=== PATIENT | female | born 1990 | race Caucasian/White ===

== ENCOUNTER 2017-04-02 09:23 | Inpatient (IN) ==
[2017-04-02] MEDS ORDERED: ONDANSETRON 4 MG/2 ML VIAL IV PRN (11:58)
[2017-04-02] MEDS ORDERED: LACTATED RINGERS 1,000 ML IV SCH (11:59)
[2017-04-02 12:19] LABS: Basophils % 0.2 % (0.0-0.8); Eosinophils # 0.1 10*3/uL (0.0-0.87); Eosinophils % 0.6 % (0.00-10.9); Hematocrit 37.2 VOL% (35.7-47.0); Hemoglobin 12.3 GM/DL (12.0-16.0); Immature Granulocytes % 0.9 %; Immature Granulocytes Absolute 0.13 #; Lymphocytes # 4.1 10*3/uL (1.4-4.0); Lymphocytes % 28.1 % (21.3-54.2); Mean Corpuscular HGB Conc 33.1 GM/DL (32-36); Mean Corpuscular Hemoglobin 30 PG (27-34); Mean Corpuscular Volume 91.9 FL (87-102); Mean Platelet Volume 10.5 FL (9.6-12.0); Monocytes # 0.8 10*3/uL (0.11-0.8); Monocytes % 5.4 % (1.7-12.7); Neutrophils # 9.4 10*3/uL (1.4-7.4); Neutrophils % 64.8 % (38.7-73.9); Platelet Count 331 T/CUMM (130-400); Red Blood Count 4.05 MC/CUMM (3.8-5.5); Red Cell Distribution Width 12.8 % (9.3-17.3); White Blood Count 14.5 T/CUMM (4-12)
[2017-04-02 12:27] LABS: INR 0.9; PT Patient Result 9.1 SECS; Partial Thromboplastin Time 25.2 SECS (0-40)
[2017-04-02] MEDS: LABETALOL 200 MG TABLET PO SCH ×2 (12:48→20:18)
[2017-04-02 13:00] LABS: Alanine Aminotransferase 21 U/L (13-56); Albumin 2.6 G/DL (3.4-5.0); Alkaline Phosphatase 124 U/L (45-117); Aspartate Amino Transferase 15 U/L (0-37); Bilirubin,Total < 0.39 MG/DL (0.2-1.0); Blood Urea Nitrogen 12 MG/DL (7-18); Calcium 9.1 MG/DL (8.5-10.1); Glucose 79 MG/DL (74-106); Potassium 4.1 MMOL/L (3.5-5.1); Sodium 136 MMOL/L (136-145); Total Protein 7.4 G/DL (6.4-8.3); Uric Acid 5.4 MG/DL (2.6-6.0)
[2017-04-02] MEDS ORDERED: ACETAMINOPHEN 500 MG TABLET PO PRN (16:09)
[2017-04-02] MEDS ORDERED: MEPERIDINE 25 MG/1 ML VIAL IV PRN (16:32)
[2017-04-02] MEDS ORDERED: ZALEPLON 5 MG CAPSULE PO ONE (22:00)
[2017-04-03] MEDS: LABETALOL 200 MG TABLET PO SCH ×3 (04:00→21:58)
[2017-04-03] MEDS ORDERED: LABETALOL 100 MG TABLET PO STA (20:00)
[2017-04-03] MEDS ORDERED: ZALEPLON 5 MG CAPSULE PO ONE (21:26)
[2017-04-04 07:05] LABS: Basophils % 0.2 % (0.0-0.8); Eosinophils # 0.1 10*3/uL (0.0-0.87); Eosinophils % 0.8 % (0.00-10.9); Hematocrit 35.4 VOL% (35.7-47.0); Hemoglobin 11.9 GM/DL (12.0-16.0); Immature Granulocytes % 0.6 %; Immature Granulocytes Absolute 0.07 #; Lymphocytes # 3.8 10*3/uL (1.4-4.0); Lymphocytes % 29.8 % (21.3-54.2); Mean Corpuscular HGB Conc 33.6 GM/DL (32-36); Mean Corpuscular Hemoglobin 31 PG (27-34); Mean Corpuscular Volume 91.2 FL (87-102); Mean Platelet Volume 10.4 FL (9.6-12.0); Monocytes # 0.6 10*3/uL (0.11-0.8); Monocytes % 5.1 % (1.7-12.7); Neutrophils % 63.5 % (38.7-73.9); Platelet Count 282 T/CUMM (130-400); Red Blood Count 3.88 MC/CUMM (3.8-5.5); Red Cell Distribution Width 13.1 % (9.3-17.3); White Blood Count 12.7 T/CUMM (4-12)
[2017-04-04 07:36] LABS: Alanine Aminotransferase 16 U/L (13-56); Albumin 2.6 G/DL (3.4-5.0); Alkaline Phosphatase 116 U/L (45-117); Aspartate Amino Transferase 12 U/L (0-37); Bilirubin,Total < 0.39 MG/DL (0.2-1.0); Blood Urea Nitrogen 14 MG/DL (7-18); Calcium 8.8 MG/DL (8.5-10.1); Glucose 77 MG/DL (74-106); Osmolality,Calculated 272.8 MOS/KG (273-304); Potassium 4.3 MMOL/L (3.5-5.1); Sodium 137 MMOL/L (136-145); Total Protein 6.3 G/DL (6.4-8.3)
[2017-04-04] MEDS ORDERED: CITRIC ACID/SODIUM CITRATE 30 ML UDCUP PO ONE (07:58)
[2017-04-04] MEDS ORDERED: ceFAZolin 2,000 MG in PREMIX 1 EACH IV ONE (07:58)
[2017-04-04] MEDS ORDERED: OXYTOCIN 10 UNIT/ML VIAL IM ONE (08:00)
[2017-04-04] MEDS ORDERED: OXYTOCIN/LR 30 UNIT/1,000 ML BAG IV ONE ×2 (08:00→13:37)
[2017-04-04] MEDS ORDERED: DEXTROSE 5% LACTATED RINGERS 1,000 ML IV SCH (08:00)
[2017-04-04] MEDS ORDERED: FAMOTIDINE 20 MG/2 ML VIAL IV ONE (08:02)
[2017-04-04] MEDS ORDERED: diphenhydrAMINE 50 MG/1 ML VIAL IV PRN ×2 (08:02→19:46)
[2017-04-04] MEDS ORDERED: LACTATED RINGERS 250 ML IV PRN (08:02)
[2017-04-04] MEDS ORDERED: hydrOXYzine HCL 25 MG/1 ML VIAL IM PRN (08:02)
[2017-04-04] MEDS ORDERED: PROMETHAZINE 25 MG/1 ML VIAL IM ONE (08:02)
[2017-04-04] MEDS: hydrALAZINE 20 MG/1 ML VIAL IV SCH ×2 (08:25→09:00)
[2017-04-04] MEDS ORDERED: LACTATED RINGERS 1,000 ML IV SCH ×2 (08:30→18:18)
[2017-04-04 08:33] LABS: INR 0.9; PT Patient Result 9.1 SECS; Partial Thromboplastin Time 26.1 SECS (0-40)
[2017-04-04] MEDS ORDERED: MAGNESIUM SULF RIDER 100 ML IV ONE (12:02)
[2017-04-04] MEDS ORDERED: MAGNESIUM SULF DRIP 40 GM/1,000 ML ML IV ONE (12:04)
[2017-04-04] MEDS ORDERED: hydrALAZINE 20 MG/1 ML VIAL ONE (12:04)
[2017-04-04] MEDS ORDERED: MAGNESIUM SULF DRIP 40 GM/1,000 ML ML IV SCH (12:30)
[2017-04-04] MEDS ORDERED: hydrALAZINE 20 MG/1 ML VIAL IV SCH (12:30)
[2017-04-04] MEDS ORDERED: LIDOCAINE 100 MG/5 ML SYRINGE ONE (13:25)
[2017-04-04] MEDS ORDERED: ONDANSETRON 4 MG/2 ML VIAL ONE (13:25)
[2017-04-04] MEDS ORDERED: FUROSEMIDE 20 MG/2 ML VIAL ONE ×2 (13:25)
[2017-04-04] MEDS ORDERED: PHENYLEPHRINE 1 MG/10 ML SYRINGE IV ONE (13:25)
[2017-04-04] MEDS ORDERED: MORPHINE 10 MG/10 ML VIAL ONE (14:43)
[2017-04-04] MEDS ORDERED: ACETAMINOPHEN 325 MG TABLET PO PRN (18:18)
[2017-04-04] MEDS ORDERED: ONDANSETRON 4 MG/2 ML VIAL IV PRN (18:18)
[2017-04-04] MEDS ORDERED: RHO(D) IMMUNE GLOBULIN 300 MCG SYRINGE IM ONE (18:18)
[2017-04-04] MEDS ORDERED: OXYTOCIN/LR 20 UNIT/1,000 ML BAG IV ONE (18:18)
[2017-04-04] MEDS ORDERED: diphenhydrAMINE 50 MG/1 ML VIAL ONE (19:42)
[2017-04-04] MEDS: FUROSEMIDE 40 MG/4 ML VIAL IV SCH (19:58)
[2017-04-04] MEDS: ceFAZolin 1,000 MG in SYRINGE 1 EACH IV SCH (22:41)
[2017-04-04 22:50] LABS: Basophils % 0.2 % (0.0-0.8); Eosinophils % 0.1 % (0.00-10.9); Hematocrit 34.5 VOL% (35.7-47.0); Hemoglobin 11.8 GM/DL (12.0-16.0); Immature Granulocytes % 0.6 %; Lymphocytes # 2.6 10*3/uL (1.4-4.0); Lymphocytes % 15.8 % (21.3-54.2); Mean Corpuscular HGB Conc 34.2 GM/DL (32-36); Mean Corpuscular Hemoglobin 31 PG (27-34); Mean Corpuscular Volume 89.6 FL (87-102); Mean Platelet Volume 10.5 FL (9.6-12.0); Monocytes # 1.2 10*3/uL (0.11-0.8); Monocytes % 7.1 % (1.7-12.7); Neutrophils # 12.7 10*3/uL (1.4-7.4); Neutrophils % 76.2 % (38.7-73.9); Platelet Count 296 T/CUMM (130-400); Red Blood Count 3.85 MC/CUMM (3.8-5.5); Red Cell Distribution Width 13.3 % (9.3-17.3); White Blood Count 16.7 T/CUMM (4-12)
[2017-04-05] MEDS: DOCUSATE SODIUM 100 MG CAPSULE PO SCH ×3 (00:07→21:05)
[2017-04-05] MEDS: FUROSEMIDE 40 MG/4 ML VIAL IV SCH (02:20)
[2017-04-05 05:41] LABS: Basophils % 0.1 % (0.0-0.8); Eosinophils % 0.3 % (0.00-10.9); Hematocrit 33.9 VOL% (35.7-47.0); Hemoglobin 11.5 GM/DL (12.0-16.0); Immature Granulocytes % 0.6 %; Immature Granulocytes Absolute 0.09 #; Lymphocytes # 3.1 10*3/uL (1.4-4.0); Lymphocytes % 20.6 % (21.3-54.2); Mean Corpuscular HGB Conc 33.9 GM/DL (32-36); Mean Corpuscular Hemoglobin 31 PG (27-34); Mean Corpuscular Volume 91.4 FL (87-102); Mean Platelet Volume 10.4 FL (9.6-12.0); Monocytes # 0.9 10*3/uL (0.11-0.8); Monocytes % 5.7 % (1.7-12.7); Neutrophils # 10.9 10*3/uL (1.4-7.4); Neutrophils % 72.7 % (38.7-73.9); Platelet Count 256 T/CUMM (130-400); Red Blood Count 3.71 MC/CUMM (3.8-5.5); Red Cell Distribution Width 13.4 % (9.3-17.3); White Blood Count 14.9 T/CUMM (4-12)
[2017-04-05] MEDS: ceFAZolin 1,000 MG in SYRINGE 1 EACH IV SCH (06:09)
[2017-04-05] MEDS: SIMETHICONE CHEW 80 MG TABLET PO PRN ×2 (08:38→22:00)
[2017-04-05] MEDS: MULTIVITAMIN (PRENATAL) TABLET PO SCH (08:38)
[2017-04-05] MEDS: MAGNESIUM HYDROXIDE SUSP 30 ML UDCUP PO PRN ×2 (08:38→22:00)
[2017-04-05 17:41] LABS: Amorphous Crystals,Urine Few /HPF (Few); Apearance,Urine CLOUDY (Clear); Bilirubin,Urine Negative (Negative); Blood, Urine Small mg/dL (Negative); Glucose,Urine (UA) Negative (Negative); Ketones,Urine Negative (Negative); Nitrite,Urine Negative (Negative); Protein,Urine Negative; RBC,Urine 20 /HPF (0-4); Urine Color Yellow (Yellow); Urine Specific Gravity 1.012 (1.001-1.035); Urine Urobilinogen < 2.0 EU/DL (0.2-1.0); WBC,Urine 5 /HPF (0-6)
[2017-04-05] MEDS: IBUPROFEN 800 MG TABLET PO PRN (18:55)
[2017-04-05] MEDS ORDERED: MORPHINE 2 MG/1 ML SYRINGE IV PRN ×2 (18:55)
[2017-04-05] MEDS ORDERED: PROMETHAZINE INJ 25 MG in SODIUM CHLORIDE 0.9% 50 ML IV PRN (18:57)
[2017-04-06] MEDS: MAGNESIUM HYDROXIDE SUSP 30 ML UDCUP PO PRN ×2 (08:15→22:15)
[2017-04-06] MEDS: SIMETHICONE CHEW 80 MG TABLET PO PRN ×2 (08:15→22:15)
[2017-04-06] MEDS: MULTIVITAMIN (PRENATAL) TABLET PO SCH (08:15)
[2017-04-06] MEDS: IBUPROFEN 800 MG TABLET PO PRN ×2 (08:16→15:45)
[2017-04-06] MEDS: DOCUSATE SODIUM 100 MG CAPSULE PO SCH ×2 (10:22→22:15)
[2017-04-06] MEDS ORDERED: BISACODYL 10 MG SUPP RECTAL PRN (21:55)
[2017-04-07 08:34] VITALS: BP 132/87
[2017-04-07] MEDS: MULTIVITAMIN (PRENATAL) TABLET PO SCH (08:52)
[2017-04-07] MEDS: DOCUSATE SODIUM 100 MG CAPSULE PO SCH (08:52)
== END 2017-04-07 13:38 | disposition home or self-care (01) | DRG 766 ==
LOC: N.LDOUT 09:23 → N.LD 09:25 → N.OB 18:09 → N.LD 18:22 → N.OB 04-03 16:06 → N.LD 04-04 07:23 → N.OB 04-04 17:12
PROVIDERS: ADMIT Obstetrics & Gynecology; ATTEND Obstetrics & Gynecology
PROC: LDCSECT (ICD-10-PCS; 2017-04-04 10:30)